=== PATIENT | female | born 1940 | race Caucasian/White ===

== ENCOUNTER 2018-04-04 11:08 | Inpatient (IN) ==
--- NOTE | 2018-04-04 11:56 | ED ---
HPI General Chief complaint: Shortness of Breath/Dyspnea Stated complaint: breathing problems/had ekg/sent by Time Seen by Provider: 04/04/18 11:24 Source: patient Mode of arrival: ambulatory Limitations: no limitations History of Present Illness HPI narrative: 77-year-old female sent in by her primary care physician for evaluation of dyspnea, intermittent chest pain, and abnormal EKG. Patient has history of hypertension. She does follow with cabinet worker Dr. Dominguez and tells me that she has a heart murmur, but denies any other significant cardiac disease. She is on Cardizem, however she is not sure why, and denies history of atrial fibrillation. She tells me that she has felt short of breath for the last 2 months. Her dyspnea is mainly with exertion, and occasionally she experiences substernal chest discomfort. She most recently had this discomfort earlier today. Currently she is chest pain-free. At rest she is also not dyspneic. She does experience orthopnea. She has bilateral lower extremity edema, stating that this has been an issue for several years, and that when she wakes up in the morning the edema seems to be significantly improved, and it worsens throughout the day. She denies cough or hemoptysis. No history of DVT or PE. No recent travel or immobilization. She has history of colon cancer and breast cancer, however states that both have been completely treated years ago. She denies fevers or chills. No cough. No paresthesias or motor deficits. Related Data Home Medications Medication Instructions Recorded Confirmed alendronate 70 mg PO QWEEK 04/04/18 04/04/18 aspirin [Aspir-81] 81 mg PO DAILY 04/04/18 04/04/18 calcium carbonate-vitamin D3 1 tab PO DAILY 04/04/18 04/04/18 [Calcium 600 + D(3)] cilostazol 100 mg PO BID 04/04/18 04/04/18 clonidine HCl 0.1 mg PO TID 04/04/18 04/04/18 diltiazem HCl [DILT-XR] 240 mg PO DAILY 04/04/18 04/04/18 doxazosin 4 mg PO BID 04/04/18 04/04/18 glipizide 2.5 mg PO DAILY 04/04/18 04/04/18 hydrochlorothiazide 12.5 mg PO DAILY 04/04/18 04/04/18 losartan 100 mg PO DAILY 04/04/18 04/04/18 metoprolol succinate 50 mg PO DAILY 04/04/18 04/04/18 [id number]-JJ-lycopen-lutein 1 tab PO DAILY 04/04/18 04/04/18 [Centrum Silver] pravastatin 40 mg PO DAILY 04/04/18 04/04/18 Allergies Allergy/AdvReac Type Severity Reaction Status Date / Time metronidazole [From Flagyl] Allergy Severe Anaphylaxis Verified 04/04/18 11:39 Review of Systems ROS: all other systems reviewed are negative [facility] Medical History Medical History Arthritis (Acute) Breast cancer, left (Acute) Colon cancer (Acute) Diabetes (Acute) Edema of both legs (Acute) Elevated cholesterol (Acute) History of radiation therapy (Acute) Hypertension (Acute) Surgical History Surgical History History of lumpectomy of left breast (Acute) Social History Social History Substance History: No History of Abuse Second Hand Smoke Exposure: No Smoking Status: Never smoker How Often Do You Have a Drink Containing Alcohol: Never Recent Travel in [facility] within the Last 8 Weeks: No Recent Out of Country Travel within the Last 8 Weeks: No Exam Narrative Exam Narrative: GENERAL: Well-developed, well-nourished, overweight, lying comfortably on stretcher, no apparent distress. SKIN: Focused skin assessment warm/dry. HEAD: Atraumatic. Normocephalic. EYES: Pupils equal and round. No scleral icterus. No injection or drainage. ENT: Mucous membranes pink and moist. NECK: Trachea midline. No JVD. CARDIOVASCULAR: Tachycardic, rate 110, regular. Harsh holosystolic murmur. RESPIRATORY: No accessory muscle use. Clear to auscultation. Breath sounds equal bilaterally. GASTROINTESTINAL: Abdomen soft, non-tender, nondistended. MUSCULOSKELETAL: No obvious deformities. No clubbing. No cyanosis. Moderate bilateral lower extremity edema from foot to knee. NEUROLOGICAL: Awake and alert. No obvious cranial nerve deficits. Motor grossly within normal limits. Normal speech. PSYCHIATRIC: Appropriate mood and affect; insight and judgment normal. Course Initial Documented Vital Signs Temperature 97.7 F 04/04/18 11:16 Pulse Rate 116 H 04/04/18 11:16 Respiratory Rate 20 04/04/18 11:16 Blood Pressure 219/89 H 04/04/18 11:16 Pulse Oximetry 98 02/13/19 11:16 Last Documented Vital Signs Temperature 97.7 F 04/04/18 11:16 Pulse Rate 103 H 04/04/18 12:50 Respiratory Rate 20 04/04/18 12:50 Blood Pressure 135/84 04/04/18 12:50 Pulse Oximetry 97 04/04/18 12:50 Critical Care Time Critical Care Time: Yes Total Critical Care Time: 40 Attestation: Aggregate critical care time was 40 minutes. Time to perform other separately billable procedures was not included in the critical care time. My time did not include minutes spent treating any other patients simultaneously or on activities that did not directly contribute to the patient's treatment. The services I provided to this patient were to treat and/or prevent clinically significant deterioration that could result in: , permanent disability, worsening clinical condition, acute respiratory failure I provided critical care services requiring my management, as noted below: Chart data review, documentation time, medication orders and management, vital sign assessments/reviewing monitor data, ordering and reviewing lab tests, ordering and interpreting/reviewing x-rays and diagnostic studies, care of the patient and discussion of the patient with the admitting physicians. Medical Decision Making MDM Narrative Medical decision making narrative: Vital signs reviewed. Initial blood pressure is 218/89 with a heart rate of 116. Chest x-ray: CONCLUSION: Cardiomegaly with mild to moderate interstitial edema Minimal parenchymal changes left base, new from comparison study. CBC is remarkable for hemoglobin 7.9, hematocrit 25. CMP is remarkable for BUN 59, creatinine 2, potassium 5.5 BNP is 362. Troponin is 0.12. CKMB is 197 D-dimer is slightly elevated at 0.77, however the patient's renal function will not support CTA. Patient was given 40 mg of IV Lasix after chest x-ray resulted. 12:40 PM: I discussed the case with the patient's primary care physician Dr. Frazier is at the patient here for evaluation. She tells me that her most recent hemoglobin was from April 2017 and was 11.1. Her most recent creatinine was from February of this year and was 1.87. The patient was made aware of all findings. Her stool is heme-negative and brown. She was verbally consented for blood transfusion by me, however this will be held at this time as the patient has signs of moderate pulmonary edema without signs of active bleeding. 1:40 PM: Case discussed with on-call cabinet worker Dr. Dykes. He reviewed the patient's office records and states that she had a negative nuclear medicine stress test in 2014. Patient's elevated troponin could be secondary to renal insufficiency. He does not recommend anticoagulation at this time. Recommends renal consult, lower extremity venous duplex, echocardiogram, and he will see the patient in consultation. The patient can be admitted to [place]. 2:30 PM: Case discussed with hospitalist Dr. Copeland who will admit the patient to his service. Medical Screen Exam Complete: Yes Emergency Medical Condition: Yes Differential Diagnosis Differential Diagnosis: ACS, PE, pulmonary edema, CHF, pneumonia, pneumothorax, anemia, metabolic abnormality Lab Data Result diagrams: 04/04/18 12:04 04/04/18 12:04 Lab Results 04/04/18 04/04/18 04/04/18 Range/Units 12:04 12:04 12:04 CBC w Diff Auto diff final WBC 7.1 (4.0-11.0) th/mm3 RBC 3.04 L (4.00-5.30) mil/mm3 Hgb 7.9 L (11.6-15.3) gm/dL Hct 25.0 L (35.0-46.0) % MCV 82.3 (80.0-100.0) fL MCH 26.1 L (27.0-34.0) pg MCHC 31.7 L (32.0-36.0) % RDW 15.5 (11.6-17.2) % Plt Count 277 (150-450) th/mm3 MPV 7.2 (7.0-11.0) fL Neut % (Auto) 70.7 H (16.0-70.0) % Lymph % (Auto) 17.5 (9.0-44.0) % [place] % (Auto) 6.9 (0.0-8.0) % Eos % (Auto) 4.3 H (0.0-4.0) % Baso % (Auto) 0.6 (0.0-2.0) % Neut # (Auto) 5.1 (1.8-7.7) th/mm3 Lymph # (Auto) 1.2 (1.0-4.8) th/mm3 [place] # (Auto) 0.5 (0.0-0.9) th/mm3 Eos # (Auto) 0.3 (0.0-0.4) th/mm3 Baso # (Auto) 0.0 (0.0-0.2) th/mm3 WBC Differential . Differential Comment . PT 10.2 (9.8-11.6) sec INR 1.0 Ratio APTT 25.6 (23.4-31.7) sec D-Dimer Quant (PE/DVT) 0.77 H (0.00-0.50) mg/L FEU Sodium 145 (136-145) meq/L Potassium 5.5 H (3.5-5.1) meq/L Chloride 117 H (98-107) meq/L Carbon Dioxide 22.5 (21.0-32.0) meq/L Anion Gap 6 (5-15) meq/L BUN 59 H (7-18) mg/dL Creatinine 2.00 H (0.50-1.00) mg/dL Estimated GFR 24 L (>89) mL/min Random Glucose 62 L (74-106) mg/dL Calcium 8.5 (8.5-10.1) mg/dL Total Bilirubin 0.3 (0.2-1.0) mg/dL AST 15 (15-37) U/L ALT 22 (10-53) U/L Alkaline Phosphatase 72 (45-117) U/L Total Creatine Kinase 197 H (26-192) U/L CK-MB (CK-2) 2.8 (0.5-3.6) ng/mL CK-MB (CK-2) % 1.4 (0.0-4.0) % Troponin I 0.12 H (0.02-0.05) ng/mL B-Natriuretic Peptide (0-100) pg/mL Total Protein 6.7 (6.4-8.2) g/dL Albumin 3.7 (3.4-5.0) g/dL 04/04/18 Range/Units 12:04 CBC w Diff WBC (4.0-11.0) th/mm3 RBC (4.00-5.30) mil/mm3 Hgb (11.6-15.3) gm/dL Hct (35.0-46.0) % MCV (80.0-100.0) fL MCH (27.0-34.0) pg MCHC (32.0-36.0) % RDW (11.6-17.2) % Plt Count (150-450) th/mm3 MPV (7.0-11.0) fL Neut % (Auto) (16.0-70.0) % Lymph % (Auto) (9.0-44.0) % [place] % (Auto) (0.0-8.0) % Eos % (Auto) (0.0-4.0) % Baso % (Auto) (0.0-2.0) % Neut # (Auto) (1.8-7.7) th/mm3 Lymph # (Auto) (1.0-4.8) th/mm3 [place] # (Auto) (0.0-0.9) th/mm3 Eos # (Auto) (0.0-0.4) th/mm3 Baso # (Auto) (0.0-0.2) th/mm3 WBC Differential Differential Comment PT (9.8-11.6) sec INR Ratio APTT (23.4-31.7) sec D-Dimer Quant (PE/DVT) (0.00-0.50) mg/L FEU Sodium (136-145) meq/L Potassium (3.5-5.1) meq/L Chloride (98-107) meq/L Carbon Dioxide (21.0-32.0) meq/L Anion Gap (5-15) meq/L BUN (7-18) mg/dL Creatinine (0.50-1.00) mg/dL Estimated GFR (>89) mL/min Random Glucose (74-106) mg/dL Calcium (8.5-10.1) mg/dL Total Bilirubin (0.2-1.0) mg/dL AST (15-37) U/L ALT (10-53) U/L Alkaline Phosphatase (45-117) U/L Total Creatine Kinase (26-192) U/L CK-MB (CK-2) (0.5-3.6) ng/mL CK-MB (CK-2) % (0.0-4.0) % Troponin I (0.02-0.05) ng/mL B-Natriuretic Peptide 362 H (0-100) pg/mL Total Protein (6.4-8.2) g/dL Albumin (3.4-5.0) g/dL Imaging Data Radiologist's impression: Chest X-Ray 04/04/18 11:39 CONCLUSION: Cardiomegaly with mild to moderate interstitial edema Minimal parenchymal changes left base, new from comparison study. Venous Doppler Study 04/04/18 13:43 CONCLUSION: 1. Negative examination with no evidence of deep venous thrombosis. ECG Data Attestation: I personally reviewed and interpreted this ECG as follows: (Sinus tachycardia, rate 107, borderline right axis deviation, first-degree AV block, slight ST depressions in lateral precordial leads, no prior comparison) Discharge Plan Discharge Disposition Patient Disposition: ED Admit(ED Internal Use Only) Discharge Details Diagnosis: Non-ST elevation [place] (NSTEMI), Pulmonary edema, Renal insufficiency, Anemia Physicians Team ED Provider: Keyon Rubio Primary Care Provider: Marjorie Frazier Rxs /Orders / Referrals /Forms Prescriptions: No Action cilostazol 100 mg Tablet 100 mg PO BID RF: 0 clonidine HCl 0.1 mg Tablet 0.1 mg PO TID RF: 0 diltiazem HCl [DILT-XR] 240 mg Capsule,Ext.Rel 24h Degradable 240 mg PO DAILY RF: 0 pravastatin 40 mg Tablet 40 mg PO DAILY RF: 0 metoprolol succinate 50 mg Tablet Extended Release 24 Hr 50 mg PO DAILY RF: 0 alendronate 70 mg Tablet 70 mg PO QWEEK RF: 0 calcium carbonate-vitamin D3 [Calcium 600 + D(3)] 600 mg(1,500mg) -200 unit Tablet 1 tab PO DAILY RF: 0 aspirin [Aspir-81] 81 mg Tablet,Delayed Release (Dr/Ec) 81 mg PO DAILY RF: 0 glipizide 2.5 mg Tablet Extended Release 24hr 2.5 mg PO DAILY RF: 0 doxazosin 4 mg Tablet 4 mg PO BID RF: 0 losartan 100 mg Tablet 100 mg PO DAILY RF: 0 bqfgbnpk-[id number]-EC-lycopen-lutein [Centrum Silver] 0.4-300-250 mg-mcg-mcg Tablet 1 tab PO DAILY RF: 0 hydrochlorothiazide 12.5 mg PO DAILY RF: 0 Status ED Status: With Doctor
[2018-04-04 12:14] LABS: Baso % (Auto) 0.6 % (0.0-2.0); Eos # (Auto) 0.3 th/mm3 (0.0-0.4); Eos % (Auto) 4.3 % (0.0-4.0); Hemoglobin 7.9 gm/dL (11.6-15.3); Lymph # (Auto) 1.2 th/mm3 (1.0-4.8); Lymph % (Auto) 17.5 % (9.0-44.0); Mean Corpuscular HGB Conc 31.7 % (32.0-36.0); Mean Corpuscular Hemoglobin 26.1 pg (27.0-34.0); Mean Corpuscular Volume 82.3 fL (80.0-100.0); Mean Platelet Volume 7.2 fL (7.0-11.0); Mono # (Auto) 0.5 th/mm3 (0.0-0.9); Mono % (Auto) 6.9 % (0.0-8.0); Neut # (Auto) 5.1 th/mm3 (1.8-7.7); Neut % (Auto) 70.7 % (16.0-70.0); Platelet Count 277 th/mm3 (150-450); Red Blood Count 3.04 mil/mm3 (4.00-5.30); Red Cell Distribution Width 15.5 % (11.6-17.2); White Blood Count 7.1 th/mm3 (4.0-11.0)
[2018-04-04 12:25] LABS: Chloride 117 meq/L (98-107); Potassium 5.5 meq/L (3.5-5.1); Sodium 145 meq/L (136-145)
[2018-04-04 12:28] LABS: Albumin 3.7 g/dL (3.4-5.0); Anion Gap 6 meq/L (5-15); Calcium 8.5 mg/dL (8.5-10.1); Carbon Dioxide 22.5 meq/L (21.0-32.0); Glucose,Random 62 mg/dL (74-106)
[2018-04-04 12:29] LABS: Blood Urea Nitrogen 59 mg/dL (7-18)
--- NOTE | 2018-04-04 12:29 | XR ---
EXAM DATE: 04/04/2018 12:02 PM EST AGE/SEX: 77 years / Female INDICATIONS: Right side chest pain. CLINICAL DATA: This is the patient's initial encounter. Patient reports that signs and symptoms have been present for 2 days and indicates a pain score of 10/10. MEDICAL/SURGICAL HISTORY: Carcinoma, breast. Carcinoma, colon. Hypercholesterolemia. Arthrit is. Diabetes. Edema of both lower extremities. Radiation therapy. Hypertension. . Left breast lumpec hira. COMPARISON: [facility], XR CHEST PA AND LAT, 07/29/2014. . FINDINGS: The heart is enlarged. Mild interstitial edema is present. Granuloma seen laterally in the right lung. Minimal consolidation is seen in the left base. Surgical clips in the left axilla. CONCLUSION: Cardiomegaly with mild to moderate interstitial edema Minimal parenchymal changes left base, new from comparison study. Electronically signed by: Modesto Gupta MD Board Certified Radiologist 04/04/2018 12:27 PM EST
[2018-04-04 12:31] LABS: Alanine Aminotransferase 22 U/L (10-53); Aspartate Aminotransferase 15 U/L (15-37)
[2018-04-04 12:32] LABS: Glomerular Filtration Rate 24 mL/min (>89)
[2018-04-04 12:33] LABS: Activated Partial Thrombo Time 25.6 sec (23.4-31.7); Prothrombin Time 10.2 sec (9.8-11.6); Total Protein 6.7 g/dL (6.4-8.2)
[2018-04-04 12:34] LABS: Alkaline Phosphatase 72 U/L (45-117); Creatine Kinase 197 U/L (26-192)
[2018-04-04 12:36] LABS: Troponin I 0.12 ng/mL (0.02-0.05)
[2018-04-04 12:47] LABS: CKMB Percent 1.4 % (0.0-4.0); Creatine Kinase MB 2.8 ng/mL (0.5-3.6)
[2018-04-04 12:57] LABS: D-Dimer 0.77 mg/L FEU (0.00-0.50)
--- NOTE | 2018-04-04 14:22 | US ---
EXAM DATE: 04/04/2018 2:12 PM EST AGE/SEX: 77 years / Female INDICATIONS: Bilateral leg swelling. CLINICAL DATA: This is the patient's initial encounter. Patient reports that signs and symptoms have been present for > 1 year and indicates a pain score of 0/10. MEDICAL/SURGICAL HISTORY: Hypertension. Shortness of breath. Breast cancer. Colon cancer. Di abetic. High cholesterol. Radiation. . Left breast lumpectomy. COMPARISON: No prior exams available for comparison. TECHNIQUE: Venous ultrasound of both lower extremities was performed from the inguinal ligament to t he proximal calf. Real-time, color Doppler and spectral tracing, compression and augmentation techni ques were used. FINDINGS: Right Leg: Normal compression of the deep venous system from the inguinal region to the proximal long f. No echogenic clot is seen. Normal response of the venous system to augmentation and respiration. Left Leg: Normal compression of the deep venous system from the inguinal region to the proximal calf . No echogenic clot is seen. Normal response of the venous system to augmentation and respiration. Other: None. CONCLUSION: 1. Negative examination with no evidence of deep venous thrombosis. Electronically signed by: Mitul Feliciano MD Board Certified Radiologist 04/04/2018 2:20 PM EST
[2018-04-04] MEDS ORDERED: Acetaminophen 325 MG Tablet PO PRN (14:34)
[2018-04-04] MEDS ORDERED: Morphine Inj 4 MG/ML Vial IV.PUSH PRN ×2 (14:35)
--- NOTE | 2018-04-04 16:49 | P.HPIM ---
History of Present Illness Primary Care Physician: Marjorie Frazier MD Chief Complaint: Shortness of breath and chest pain History of Present Illness: 77-year-old female with known history of hypertension, hyperlipidemia, diabetes, history of breast cancer, history of colon cancer who presented to the hospital today at the request of her college teacher and primary medical doctor for evaluation of shortness of breath, chest pain, abnormal EKG. Patient indicates that over the last 3 months she has been experiencing progressive shortness of breath, chest pain. She states that it started out being approximately 1-2 times a week where she would walk approximately 40 feet she would start developing difficulty in breathing, shortness of breath with development of chest pain in the right upper chest. She states that whenever she sits down the pain will go away in approximately 5 minutes. He denies any radiation of pain to the neck, back, shoulder, arm. Denies any nausea, vomiting, diaphoresis, lightheadedness or dizziness. Patient states that whenever she gets this discomfort she cannot lay down because it makes her breathing worse. The pain has progressively got worse over the last 3 months where she is having a couple times a day. She thought that she would wait until her follow-up appointment with her primary doctor Dr. Frazier which was today. The patient had evaluation done at her prior medical doctor's office and apparently had an abnormal EKG so patient's prior medical doctor called her college teacher Dr. Dominguez who notify them that the patient should go to the emergency department for evaluation. Upon evaluation emergency department patient was found to have multiple abnormalities with uncontrolled hypertension, EKG with sinus tachycardia and first-degree AV block which patient does not have any previous EKGs here for us to review. Patient had elevated troponin. Elevated renal functions. She indicates that she has been evaluated by a award clerk in the past because of her abnormal kidney functions. She was told that she does not need dialysis at this time. Patient found to have normocytic anemia with heme negative stool. Patient denied any hematemesis, hematochezia, melena. Patient did have elevated d-dimer, unable to pursue pulmonary angiogram due to renal functions. Lower extremity ultrasound was performed which did not indicate any DVTs. Will defer further evaluation with possible VQ scan to cardiology. Will need to see if patient will require myocardial perfusion study for further evaluation. Patient did have elevated cardiac enzymes which could be secondary to chronic kidney disease or non-ST elevated myocardial infarction or congestive heart failure. Patient will obviously be admitted to hospital for further evaluation and management. Cardiology has been consulted for further recommendations Review of Systems Review of Systems: all other systems reviewed are negative Cardiovascular: Reports chest pain, Reports chest pain with activity, Reports dyspnea, Reports dyspnea on exertion and Reports orthopnea [facility] Medical History Medical History Arthritis (Acute) Breast cancer, left (Acute) Colon cancer (Acute) Diabetes (Acute) Edema of both legs (Acute) Elevated cholesterol (Acute) History of radiation therapy (Acute) Hypertension (Acute) Surgical History Surgical History History of cataract surgery (Acute) History of knee surgery (Acute) History of lumpectomy of left breast (Acute) Family History Family History Father Family history of diabetes mellitus Mother Family history of cancer Social History Social History Substance History: No History of Abuse Second Hand Smoke Exposure: Yes (at [employer]) Smoking Status: Never smoker How Often Do You Have a Drink Containing Alcohol: Never Recent Travel in [facility] within the Last 8 Weeks: No Recent Out of Country Travel within the Last 8 Weeks: No Immunization History Tetanus Immunization: <5 Years Medications and Allergies Allergies Allergy/AdvReac Type Severity Reaction Status Date / Time metronidazole [From Flagyl] Allergy Severe Anaphylaxis Verified 04/04/18 11:39 Home Medications Medication Instructions Recorded Confirmed Type alendronate 70 mg PO QWEEK 04/04/18 04/04/18 History aspirin [Aspir-81] 81 mg PO DAILY 04/04/18 04/04/18 History calcium carbonate-vitamin D3 1 tab PO DAILY 04/04/18 04/04/18 History [Calcium 600 + D(3)] cilostazol 100 mg PO BID 04/04/18 04/04/18 History clonidine HCl 0.1 mg PO TID 04/04/18 04/04/18 History diltiazem HCl [DILT-XR] 240 mg PO DAILY 04/04/18 04/04/18 History doxazosin 4 mg PO BID 04/04/18 04/04/18 History glipizide 2.5 mg PO DAILY 04/04/18 04/04/18 History hydrochlorothiazide 12.5 mg PO DAILY 04/04/18 04/04/18 History losartan 100 mg PO DAILY 04/04/18 04/04/18 History metoprolol succinate 50 mg PO DAILY 04/04/18 04/04/18 History jpzbsdcm-bvm-IV-lycopen-lutein 1 tab PO DAILY 04/04/18 04/04/18 History [Centrum Silver] pravastatin 40 mg PO DAILY 04/04/18 04/04/18 History Active Medications: Active Medications Acetaminophen (Tylenol) 650 mg PO Q4H PRN PRN Reason: Temp > 100.4 Al Hydroxide/Mg Hydroxide (Milk Of Magngia Liq) 30 ml PO Q12H PRN PRN Reason: Mild Constipation Morphine Sulfate (Morphine Inj) 2 mg IV.PUSH Q4H PRN PRN Reason: Pain 3 to 6 Morphine Sulfate (Morphine Inj) 4 mg IV.PUSH Q4H PRN PRN Reason: Pain 7 to 10 Ondansetron HCl (Zofran Inj) 4 mg IV.PUSH Q6H PRN PRN Reason: NAUSEA OR VOMITING Sodium Chloride (Ns Flush) 2 ml IV.FLUSH UNSCH PRN PRN Reason: FLUSH AFTER USING IV ACCESS Last Admin: 04/04/18 12:44 Dose: 2 ml Sodium Chloride (Ns Flush) 2 ml IV.FLUSH BID JOSE MIGUEL Sodium Chloride (Ns Flush) 2 ml IV.FLUSH PRN PRN PRN Reason: FLUSH AFTER USING IV ACCESS Physical Exam Vital signs: Vital Signs 04/04/18 11:16 04/04/18 11:50 04/04/18 12:06 Temperature 97.7 F Pulse Rate 116 H 104 H 105 H Respiratory Rate 20 20 Blood Pressure 219/89 H 197/103 H Pulse Oximetry 98 98 98 04/04/18 12:50 04/04/18 13:20 04/04/18 14:42 Temperature Pulse Rate 103 H 99 H 95 H Respiratory Rate 20 18 Blood Pressure 135/84 198/78 H Pulse Oximetry 97 97 04/04/18 15:25 Temperature Pulse Rate 94 H Respiratory Rate 18 Blood Pressure 195/85 H Pulse Oximetry 97 Intake & Output 04/03/18 04/04/18 04/04/18 18:59 06:59 18:59 Weight 97 kg Narrative: GENERAL: Well-developed, well-nourished, in no acute distress. alert and orientated HEENT: Head is normocephalic without any lesions or masses noted. Facial features are symmetric. Eyes: Pupils equal round reactive to light. Extraocular muscles are intact. Conjunctivae were clear. Oropharyngeal: Pharynx without any erythema edema. Tongue is midline without deviation. Buccal mucosa is moist without any masses or lesions NECK: Supple without any masses. Trachea midline no deviation. No JVD, no bruits are appreciated CARDIAC: Regular rhythm, regular rate. S1/S2 are heard. Patient does have a rather impressive cardiac murmur with a thrilling early holosystolic murmur, this was heard in all areas but more accentuated in the aortic region. No gallops or rubs. LUNGS: Clear to auscultation bilaterally. No wheeze, rhonchi or rales. No use of accessory muscles on inspiration or expiration. ABDOMEN: Soft, nontender. Nondistended. Bowel sounds heard in all 4 quadrants. No organomegaly or masses. Negative rebound, negative guarding EXTREMITIES: 2+ bilateral lower extremity edema, pulses are equal bilaterally. No cyanosis or clubbing NEUROLOGY: Mood and affect appear appropriate. Cranial nerves II through XII grossly intact. Muscle strength 5/5 in upper and lower extremities bilaterally. Deep tendon reflexes are 2+ in upper and lower extremities bilaterally. Results Labs CBC & Chem 7: 04/04/18 12:04 04/04/18 12:04 Imaging Impressions Chest X-Ray 04/04/18 11:39 CONCLUSION: Cardiomegaly with mild to moderate interstitial edema Minimal parenchymal changes left base, new from comparison study. Venous Doppler Study 04/04/18 13:43 CONCLUSION: 1. Negative examination with no evidence of deep venous thrombosis. Caprini VTE Risk Assessment Caprini VTE Risk Assessment: Moderate/High Risk (score >= 2) Caprini Risk Assessment Model: Point Value = 1 Point Value = 2 Point Value = 3 Point Value = 5 Age 41-60 Minor surgery BMI > 25 kg/m2 Swollen legs Varicose veins or History of unexplained or recurrent spontaneous Oral contraceptives or hormone replacement Sepsis (< 1 month) Serious lung disease, including pneumonia (< 1 month) Abnormal pulmonary function Acute myocardial infarction Congestive heart failure (< 1 month) History of inflammatory bowel disease Medical patient at bed rest Age 61-74 Arthroscopic surgery Major open surgery (> 45 min) Laparoscopic surgery (> 45 min) Malignancy Confined to bed (> 72 hours) Immobilizing plaster cast Central venous access Age >= 75 History of VTE Family history of VTE Factor V Leiden Prothrombin [id number] Lupus anticoagulant Anticardiolipin antibodies Elevated serum homocysteine Heparin-induced thrombocytopenia Other congenital or acquired thrombophilia Stroke (< 1 month) Elective arthroplasty Hip, pelvis, or leg fracture Acute spinal cord injury (< 1 month) Prophylaxis Regimen: Total Risk Factor Score Risk Level Prophylaxis Regimen 0-1 Low Early ambulation 2 Moderate Order ONE of the following: *Sequential Compression Device (SCD) *Heparin 5000 units SQ BID 3-4 Higher Order ONE of the following medications: *Heparin 5000 units SQ TID *Enoxaparin/Lovenox 40 mg SQ daily (WT < 150 kg, CrCl > 30 mL/min) *Enoxaparin/Lovenox 30 mg SQ daily (WT < 150 kg, CrCl > 10-29 mL/min) *Enoxaparin/Lovenox 30 mg SQ BID (WT < 150 kg, CrCl > 30 mL/min) AND/OR *Sequential Compression Device (SCD) 5 or more Highest Order ONE of the following medications: *Heparin 5000 units SQ TID (Preferred with Epidurals) *Enoxaparin/Lovenox 40 mg SQ daily (WT < 150 kg, CrCl > 30 mL/min) *Enoxaparin/Lovenox 30 mg SQ daily (WT < 150 kg, CrCl > 10-29 mL/min) *Enoxaparin/Lovenox 30 mg SQ BID (WT < 150 kg, CrCl > 30 mL/min) AND *Sequential Compression Device (SCD) Assessment and Plan Plan Chest pain Could be secondary to non-ST elevated myocardial infarction, stable angina, congestive heart failure Patient does have initially elevated cardiac enzyme, will continue to trend cardiac enzymes to evaluate for worsening Initial EKG was reviewed which was reviewed by myself and indicated sinus tachycardia first-degree AV block, continue monitor serial EKGs Community Fundraiser consulted for further recommendations, college teacher was contacted via emergency room physician who recommended admission and no anticoagulation Patient does have history of chronic kidney disease with elevated creatinine. This is going to complicate patient's need for possible intervention, patient is in fluid overload at this time so will be difficult to give fluids in order to try to improve patient's renal function if patient needs to have intervention Continue aspirin, nitroglycerin as needed, continue beta-aislinn, ARB, pravastatin Obtain lipid panel Acute congestive heart failure unknown whether it is systolic versus diastolic We will need to obtain echocardiogram Cautious diuresis secondary to patient's acute renal failure with hyperkalemia Patient did have a chest x-ray which does show cardiomegaly with mild to moderate interstitial edema Patient had elevated BNP at 362 Continue beta-aislinn, ARB Fluid restriction, daily weights Normocytic anemia, unknown etiology Could be anemia from chronic disease, stool was heme-negative in the emergency department We will need to check anemia studies May need to transfuse to keep hemoglobin above 10.0 given the patient with cardiovascular disease Chronic kidney disease with hyperkalemia Unknown what stage at this time We will consult Dr. So, patient indicates that is her award clerk Continue monitor renal function Avoid nephrotoxins Diabetes Diabetic diet Accu-Cheks with sliding scale insulin DVT prevention Sequential compression devices Discussed Condition With: Patient, college teacher, nursing staff, Dr. Copeland H&P: Quality VTE Deep Vein Thrombosis/Pulmonary Embolism Present on Admission: No
--- NOTE | 2018-04-04 17:29 | MB ---
cc: Radha Jones MD DATE: 04/04/2018 REASON FOR CONSULTATION: Elevated troponin and abnormal EKG. HISTORY OF PRESENT ILLNESS: Ms. Ayala is a pleasant 77-year-old female who does have a history of hypertension, hyperlipidemia, and diabetes. She was followed by my partner, Dr. Dominguez in the past, but has not been seen in the office for over 4 years. The patient has had progressive shortness of breath and lower extremity edema over the last 2-3 months. She was seen by her primary care provider today and referred to the emergency room. The patient also notes that she has had some right-sided chest pain. She is somewhat of a poor historian. PAST MEDICAL HISTORY: Significant for hypertension, hyperlipidemia, diabetes, breast cancer, colon cancer, anemia, chronic kidney disease. PAST SURGICAL HISTORY: Does include the lumpectomy of her breast. OUTPATIENT MEDICATIONS: Include: 1. Aspirin. 2. Cilostazol. 3. Clonidine. 4. Diltiazem. 5. Doxazosin. 6. Glipizide. 7. Hydrochlorothiazide. 8. Losartan. 9. Metoprolol. 10. Pravastatin. SOCIAL HISTORY: The patient does not smoke. REVIEW OF SYSTEMS: Except was mentioned in the HPI, all 12 systems are negative. FAMILY HISTORY: Noncontributory. PHYSICAL EXAMINATION: VITAL SIGNS: 94, 18, 195/85. GENERAL: She is a morbidly obese female who is in no apparent distress. NECK: Free from JVD. LUNGS: Clear to auscultation. CARDIOVASCULAR: She has a harsh aortic stenosis murmur. She is a bit tachycardic. ABDOMEN: Soft. EXTREMITIES: Trace amount of edema. DIAGNOSTIC DATA: Chest x-ray from 04/04/2018 shows cardiomegaly with mild to moderate interstitial edema. LABORATORY DATA: Significant for hemoglobin of 7.9. Her D-dimer was 0.77, potassium 5.5, creatinine 2.0, and troponin I of 0.12 with a BNP of 362. EKG shows sinus tachycardia and nonspecific ST-T wave changes. IMPRESSION: 1. Congestive heart failure - The patient likely has an acute on chronic exacerbation of diastolic heart failure. We will obviously need echocardiogram to verify this, as well as her valvular heart disease. I do agree with the diuretics. I would use some caution in both diuresing her and decreasing her blood pressure secondary to her potentially severe aortic stenosis. 2. Elevated troponin - this is likely a secondary myocardial infarction from her uncontrolled hypertension and congestive heart failure. 3. Valvular heart disease - her exam is consistent with aortic stenosis. She unfortunately does not appear to be a good candidate with her renal insufficiency and anemia. Nonetheless, she will be worked up further with an echocardiogram. 4. Uncontrolled hypertension - at this point, I would restart her home medications as there may have been some noncompliance. Radha Jones MD BAB/ct , 04:42 PM , 04:52 PM
[2018-04-04 18:16] LABS: Erythrocyte Sedimentation Rate 35 mm/hr (0-30)
[2018-04-04 18:19] LABS: Troponin I 0.37 ng/mL (0.02-0.05)
[2018-04-04 18:30] LABS: CKMB Percent 2.1 % (0.0-4.0); Creatine Kinase MB 4.7 ng/mL (0.5-3.6)
--- NOTE | 2018-04-04 19:46 | ECG ---
Date Performed: 04/04/2018 Time Performed: 11:46:22 PTAGE: 77 years EKG: SINUS TACHYCARDIA WITH FIRST DEGREE AV BLOCK BORDERLINE RIGHT AXIS DEVIATION NONSPECIFIC ST & T-WAVE ABNORMALITY ABNORMAL ECG NO PREVIOUS TRACING DOCTOR: Jose Smith Interpretating Date/Time 04/04/2018 19:44:20
[2018-04-04 20:49] LABS: Reticulocyte Percent 1.1 % (0.4-3.0)
[2018-04-04] MEDS: Doxazosin 4 MG Tablet PO SCH (20:50)
[2018-04-04] MEDS: Cilostazol 50 MG Tablet PO SCH (20:50)
[2018-04-04 21:08] LABS: Iron 26 mcg/dL (50-170); Lactate Dehydrogenase 219 U/L (84-246)
[2018-04-04 21:32] LABS: % Iron Saturation 6.9 % (20-50); Ferritin 10 ng/mL (8-252); Haptoglobin 159 mg/dL (30-200); Total Iron Binding Capacity 378 mcg/dL (250-450); Vitamin B12 950 pg/mL (193-986)
[2018-04-05 01:11] LABS: Chloride 112 meq/L (98-107); Potassium 5.4 meq/L (3.5-5.1); Sodium 141 meq/L (136-145)
[2018-04-05 01:14] LABS: Calcium 8.2 mg/dL (8.5-10.1)
[2018-04-05 01:15] LABS: Albumin 3.4 g/dL (3.4-5.0); Anion Gap 6 meq/L (5-15); Blood Urea Nitrogen 59 mg/dL (7-18); Carbon Dioxide 22.6 meq/L (21.0-32.0); Glucose,Random 74 mg/dL (74-106)
[2018-04-05 01:18] LABS: Alanine Aminotransferase 20 U/L (10-53); Aspartate Aminotransferase 21 U/L (15-37); Glomerular Filtration Rate 23 mL/min (>89)
[2018-04-05 01:20] LABS: Creatine Kinase 221 U/L (26-192)
[2018-04-05 01:21] LABS: Alkaline Phosphatase 65 U/L (45-117)
[2018-04-05 01:23] LABS: Troponin I 0.51 ng/mL (0.02-0.05)
[2018-04-05 01:32] LABS: CKMB Percent 1.7 % (0.0-4.0); Creatine Kinase MB 3.7 ng/mL (0.5-3.6)
[2018-04-05 06:52] LABS: Baso % (Auto) 0.5 % (0.0-2.0); Eos # (Auto) 0.6 th/mm3 (0.0-0.4); Eos % (Auto) 7.9 % (0.0-4.0); Hematocrit 26.5 % (35.0-46.0); Hemoglobin 8.2 gm/dL (11.6-15.3); Lymph # (Auto) 1.8 th/mm3 (1.0-4.8); Lymph % (Auto) 24.4 % (9.0-44.0); Mean Corpuscular Hemoglobin 25.8 pg (27.0-34.0); Mean Corpuscular Volume 83.6 fL (80.0-100.0); Mean Platelet Volume 7.9 fL (7.0-11.0); Mono # (Auto) 0.6 th/mm3 (0.0-0.9); Mono % (Auto) 7.9 % (0.0-8.0); Neut # (Auto) 4.2 th/mm3 (1.8-7.7); Neut % (Auto) 59.3 % (16.0-70.0); Platelet Count 287 th/mm3 (150-450); Red Blood Count 3.17 mil/mm3 (4.00-5.30); Red Cell Distribution Width 15.9 % (11.6-17.2); White Blood Count 7.3 th/mm3 (4.0-11.0)
[2018-04-05 06:55] LABS: Mean Corpuscular HGB Conc 30.9 % (32.0-36.0)
[2018-04-05 07:21] LABS: Troponin I 0.45 ng/mL (0.02-0.05)
[2018-04-05] MEDS: dilTIAZem CD 240 MG Capsule PO SCH (10:10)
[2018-04-05] MEDS: Doxazosin 4 MG Tablet PO SCH ×2 (10:10→20:03)
[2018-04-05] MEDS: Cilostazol 50 MG Tablet PO SCH ×2 (10:11→20:01)
[2018-04-05 10:14] LABS: Chol/HDL Ratio 2.2 Ratio; HDL Cholesterol 58.5 mg/dL (40.0-60.0)
--- NOTE | 2018-04-05 10:28 | ECHRPT ---
Indication: CARDIOMYOPATHY CONCLUSIONS Normal left ventricular size. Wall thickness is measured at the upper limits of normal. The left ventricular systolic function is normal with an estimated ejection fraction in the range of 60-65%. Increased atrial septal thickness. Trace mitral valve regurgitation. Mild aortic valve stenosis. There is trace tricuspid valve regurgitation. The estimated pulmonary arterial pressure is 51 mmHg. There is a small pericardial effusion present. BP: / HR: Rhythm: Sinus MEASUREMENTS (Male / Female) Normal Values Technical Quality:Poor 2D ECHO LV Diastolic Diameter PLAX 4.2 cm 4.2 - 5.9 / 3.9 - 5.3 cm LV Systolic Diameter PLAX 3.0 cm IVS Diastolic Thickness 1.2 cm 0.6 - 1.0 / 0.6 - 0.9 cm LVPW Diastolic Thickness 1.2 cm 0.6 - 1.0 / 0.6 - 0.9 cm LV Relative Wall Thickness 0.6 RV Internal Dim ED PLAX 3.0 cm LVOT Diameter 1.7 cm DOPPLER AV Peak Velocity 295.5 cm/s AV Peak Gradient 34.9 mmHg AV Mean Gradient 20.0 mmHg AV Velocity Time Integral 62.0 cm LVOT Peak Velocity 128.0 cm/s LVOT Peak Gradient 6.6 mmHg LVOT Velocity Time Integral 28.1 cm AV Area Cont Eq vti 1.0 cm AV Area Cont Eq pk 1.0 cm Mitral E Point Velocity 147.0 cm/s Mitral A Point Velocity 138.0 cm/s Mitral E to A Ratio 1.1 LV E' Lateral Velocity 13.6 cm/s Mitral E to LV E' Lateral Ratio 10.8 LV E' Septal Velocity 6.7 cm/s Mitral E to LV E' Septal Ratio 21.8 TR Peak Velocity 320.0 cm/s TR Peak Gradient 41.0 mmHg Right Atrial Pressure 10.0 mmHg Pulmonary Artery Systolic Pressu 51.0 mmHg Right Ventricular Systolic Press 51.0 mmHg PV Peak Velocity 177.0 cm/s PV Peak Gradient 12.5 mmHg FINDINGS LEFT VENTRICLE Normal left ventricular size. Wall thickness is measured at the upper limits of normal. The left ventricular systolic function is normal with an estimated ejection fraction in the range of 60-65%. LEFT ATRIUM The left atrial size is normal. RIGHT ATRIUM The right atrial size is normal. ATRIAL SEPTUM Increased atrial septal thickness. AORTA The aortic root and proximal ascending aorta are normal in size on limited imaging. MITRAL VALVE Trace mitral valve regurgitation. AORTIC VALVE Mild aortic valve stenosis. TRICUSPID VALVE There is trace tricuspid valve regurgitation. The estimated pulmonary arterial pressure is 51 mmHg. PULMONARY VALVE No pulmonary valve regurgitation or stenosis. VESSELS The inferior vena cava is normal in size. PERICARDIUM There is a small pericardial effusion present. Bright Russo MD, FACC (Electronically Signed) Final Date:05 April 2018 10:27
--- NOTE | 2018-04-05 11:45 | ECG ---
Date Performed: 04/04/2018 Time Performed: 17:32:04 PTAGE: 77 years EKG: SINUS TACHYCARDIA WITH FREQUENT PACs FIRST DEGREE AV BLOCK NONSPECIFIC ST-T WAVE ABNORMALIT IES ABNORMAL ECG Compared to PREVIOUS TRACING , PACs are new. PREVIOUS TRACIN04/04/2018 11.46 DOCTOR: Anselmo Dykes Interpretating Date/Time 04/05/2018 11:43:38
--- NOTE | 2018-04-05 11:45 | ECG ---
Date Performed: 04/05/2018 Time Performed: 00:12:32 PTAGE: 77 years EKG: SINUS TACHYCARDIA WITH OCCASIONAL SUPRAVENTRICULAR PREMATURE COMPLEXES BORDERLINE RIGHT AXI S DEVIATION NONSPECIFIC ST & T-WAVE ABNORMALITY ABNORMAL RHYTHM ECG Compared to PREVIOUS TRACING , the VA interval is shorter. PREVIOUS TRACIN04/04/2018 17.32 DOCTOR: Anselmo Dykes Interpretating Date/Time 04/05/2018 11:44:00
--- NOTE | 2018-04-05 11:52 | P.PNIM ---
Subjective Interval history: 77-year-old female who is seen examined today for follow-up on non-ST elevated myocardial infarction, acute congestive heart failure, acute kidney injury, anemia. Patient states that she does feel better today after the diuresis. She is able to lay flat last night. However she still gets significantly short of breath on exertion. Patient denies any chest pain. Vital signs are stable. Patient remains afebrile. Physical Exam Vital signs: Vital Signs 04/04/18 11:50 04/04/18 12:06 04/04/18 12:50 Temperature Pulse Rate 104 H 105 H 103 H Respiratory Rate 20 20 Blood Pressure 197/103 H 135/84 Pulse Oximetry 98 98 97 04/04/18 13:20 04/04/18 14:42 04/04/18 15:25 Temperature Pulse Rate 99 H 95 H 94 H Respiratory Rate 18 18 Blood Pressure 198/78 H 195/85 H Pulse Oximetry 97 97 04/04/18 16:10 04/04/18 20:00 04/04/18 20:20 Temperature 97.3 F L 99.3 F Pulse Rate 94 H 100 H Respiratory Rate 20 16 Blood Pressure 140/82 126/75 Pulse Oximetry 95 96 97 04/05/18 00:00 04/05/18 00:05 04/05/18 08:00 Temperature 97.9 F 97.1 F L Pulse Rate 95 H 100 H 101 H Respiratory Rate 20 20 Blood Pressure 143/73 H 134/75 Pulse Oximetry 95 95 Intake & Output 04/04/18 04/05/18 04/05/18 18:59 06:59 18:59 Intake Total 300 / 300 Balance 300 / 300 Weight 97 kg 97 kg Intake: Oral 300 / 300 Other: # Voids 5 4 # Bowel Movements 0 Narrative: GENERAL: Well-developed, well-nourished, in no acute distress. alert and orientated HEENT: Head is normocephalic without any lesions or masses noted. Facial features are symmetric. Eyes: Extraocular muscles are intact. Conjunctivae were clear. NECK: Supple without any masses. Trachea midline no deviation. No JVD, CARDIAC: Regular rhythm, regular rate. S1/S2 are heard. Patient does have a rather impressive cardiac murmur with a thrilling early holosystolic murmur, this was heard in all areas but more accentuated in the aortic region. No gallops or rubs. LUNGS: Clear to auscultation bilaterally. No wheeze, rhonchi or rales. No use of accessory muscles on inspiration or expiration. ABDOMEN: Soft, nontender. Nondistended. Bowel sounds heard in all 4 quadrants. No organomegaly or masses. Negative rebound, negative guarding EXTREMITIES: 2+ bilateral lower extremity edema, pulses are equal bilaterally. No cyanosis or clubbing NEUROLOGY: Mood and affect appear appropriate. Cranial nerves II through XII grossly intact. Moving all extremities, speech is clear Results Labs CBC & Chem 7: 04/05/18 05:13 04/05/18 01:00 Imaging Imaging: Impressions Chest X-Ray 04/04/18 11:39 CONCLUSION: Cardiomegaly with mild to moderate interstitial edema Minimal parenchymal changes left base, new from comparison study. Venous Doppler Study 04/04/18 13:43 CONCLUSION: 1. Negative examination with no evidence of deep venous thrombosis. Assessment and Plan Plan Chest pain, non-ST elevated myocardial infarction Serial cardiac enzymes were performed and indicated worsening and now plateaued at 0.45 Serial EKGs reviewed by myself which indicated sinus tachycardia with occasional supra ventricular premature complexes. First-degree AV block. No acute changes Cardiology evaluated patient and recommendation Patient does have history of chronic kidney disease with elevated creatinine. This is going to complicate patient's need for possible intervention, patient is in fluid overload at this time so will be difficult to give fluids in order to try to improve patient's renal function if patient needs to have intervention Continue aspirin, nitroglycerin as needed, continue beta-aislinn, ARB, pravastatin Lipid panel was done and LDL was 48 Acute congestive heart failure unknown whether it is systolic versus diastolic Echocardiogram was performed and indicated ejection fraction 60-65%. Mild aortic valve stenosis, small pericardial effusion, PA peak pressure 51 mmhg Cautious diuresis secondary to patient's acute renal failure with hyperkalemia Patient did have a chest x-ray which does show cardiomegaly with mild to moderate interstitial edema Patient did have elevated BNP Continue beta-aislinn, ARB Fluid restriction, daily weights Discussed with cardiology who indicated reducing to p.o. Lasix for diuresis, and once patient fluid status is improved, nephrology following the patient and clinically stable; patient can discharge home with medical management. Normocytic anemia, unknown etiology Could be anemia from chronic disease, stool was heme-negative in the emergency department Anemia studies indicating iron deficient anemia May need to transfuse to keep hemoglobin above 10.0 given the patient with cardiovascular disease Chronic kidney disease with hyperkalemia Unknown what stage at this time Consulted Dr. 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 Copeland Progress Note: Quality VTE Deep Vein Thrombosis/Pulmonary Embolism Present on Admission: No
--- NOTE | 2018-04-05 12:31 | P.PNCA ---
Subjective Interval history: PT feeling better Medications and Allergies Active Medications: Active Medications Acetaminophen (Tylenol) 650 mg PO Q4H PRN PRN Reason: Temp > 100.4 Al Hydroxide/Mg Hydroxide (Milk Of Magngia Liq) 30 ml PO Q12H PRN PRN Reason: Mild Constipation Cilostazol (Pletal) 100 mg PO BID [facility] Last Admin: 04/05/18 10:11 Dose: 100 mg Clonidine HCl (Catapres) 0.1 mg PO TID [facility] Last Admin: 04/05/18 10:10 Dose: 0.1 mg Diltiazem HCl (Cardizem Cd 24hr) 240 mg PO DAILY [facility] Last Admin: 04/05/18 10:10 Dose: 240 mg Doxazosin Mesylate (Cardura) 4 mg PO BID [facility] Last Admin: 04/05/18 10:10 Dose: 4 mg Furosemide (Lasix Inj) 20 mg IV.PUSH BID@0900,1800 [facility] Losartan Potassium (Cozaar) 100 mg PO DAILY [facility] Last Admin: 04/05/18 10:10 Dose: 100 mg Metoprolol Succinate (Toprol Xl) 50 mg PO DAILY [facility] Last Admin: 04/05/18 10:11 Dose: 50 mg Morphine Sulfate (Morphine Inj) 2 mg IV.PUSH Q4H PRN PRN Reason: Pain 3 to 6 Morphine Sulfate (Morphine Inj) 4 mg IV.PUSH Q4H PRN PRN Reason: Pain 7 to 10 Ondansetron HCl (Zofran Inj) 4 mg IV.PUSH Q6H PRN PRN Reason: NAUSEA OR VOMITING Pravastatin Sodium (Pravachol) 40 mg PO DAILY [facility] Last Admin: 04/05/18 10:11 Dose: 40 mg Sodium Chloride (Ns Flush) 2 ml IV.FLUSH UNSCH PRN PRN Reason: FLUSH AFTER USING IV ACCESS Last Admin: 04/04/18 12:44 Dose: 2 ml Sodium Chloride (Ns Flush) 2 ml IV.FLUSH BID [facility] Last Admin: 04/05/18 10:11 Dose: 2 ml Sodium Chloride (Ns Flush) 2 ml IV.FLUSH PRN PRN PRN Reason: FLUSH AFTER USING IV ACCESS Allergies Allergy/AdvReac Type Severity Reaction Status Date / Time metronidazole [From Flagyl] Allergy Severe Anaphylaxis Verified 04/04/18 11:39 Home Medications Medication Instructions Recorded Confirmed Type alendronate 70 mg PO QWEEK 04/04/18 04/04/18 History aspirin [Aspir-81] 81 mg PO DAILY 04/04/18 04/04/18 History calcium carbonate-vitamin D3 1 tab PO DAILY 04/04/18 04/04/18 History [Calcium 600 + D(3)] cilostazol 100 mg PO BID 04/04/18 04/04/18 History clonidine HCl 0.1 mg PO TID 04/04/18 04/04/18 History diltiazem HCl [DILT-XR] 240 mg PO DAILY 04/04/18 04/04/18 History doxazosin 4 mg PO BID 04/04/18 04/04/18 History glipizide 2.5 mg PO DAILY 04/04/18 04/04/18 History hydrochlorothiazide 12.5 mg PO DAILY 04/04/18 04/04/18 History losartan 100 mg PO DAILY 04/04/18 04/04/18 History metoprolol succinate 50 mg PO DAILY 04/04/18 04/04/18 History rqhcheyx-qjh-JO-lycopen-lutein 1 tab PO DAILY 04/04/18 04/04/18 History [Centrum Silver] pravastatin 40 mg PO DAILY 04/04/18 04/04/18 History Physical Exam Vital signs: Vital Signs 04/04/18 12:50 04/04/18 13:20 04/04/18 14:42 Temperature Pulse Rate 103 H 99 H 95 H Respiratory Rate 20 18 Blood Pressure 135/84 198/78 H Pulse Oximetry 97 97 04/04/18 15:25 04/04/18 16:10 04/04/18 20:00 Temperature 97.3 F L 99.3 F Pulse Rate 94 H 94 H 100 H Respiratory Rate 18 20 16 Blood Pressure 195/85 H 140/82 126/75 Pulse Oximetry 97 95 96 04/04/18 20:20 04/05/18 00:00 04/05/18 00:05 Temperature 97.9 F Pulse Rate 95 H 100 H Respiratory Rate 20 Blood Pressure 143/73 H Pulse Oximetry 97 95 04/05/18 08:00 Temperature 97.1 F L Pulse Rate 101 H Respiratory Rate 20 Blood Pressure 134/75 Pulse Oximetry 95 Intake & Output 04/04/18 04/05/18 04/05/18 18:59 06:59 18:59 Intake Total 300 / 300 Balance 300 / 300 Weight 97 kg 97 kg Intake: Oral 300 / 300 Other: # Voids 5 4 # Bowel Movements 0 - Constitutional no acute distress - Routine Respiratory Exam Present: CTA bilaterally - Routine Cardiovascular Exam Comments: RRR, harsh [place] - Routine Extremities Exam Comments: no edema Results 04/05/18 05:13 04/05/18 01:00 Cardiac Enzymes 04/04/18 04/04/18 04/04/18 Range/Units 12:04 12:04 12:04 AST 15 (15-37) U/L Lactate Dehydrogenase 219 (84-246) U/L CK-MB (CK-2) 2.8 (0.5-3.6) ng/mL Troponin I 0.12 H (0.02-0.05) ng/mL B-Natriuretic Peptide 362 H (0-100) pg/mL 04/04/18 04/05/18 04/05/18 Range/Units 17:40 01:00 05:13 AST 21 (15-37) U/L Lactate Dehydrogenase (84-246) U/L CK-MB (CK-2) 4.7 H 3.7 H (0.5-3.6) ng/mL Troponin I 0.37 H D 0.51 H D 0.45 H (0.02-0.05) ng/mL B-Natriuretic Peptide (0-100) pg/mL Coagulation 04/04/18 04/04/18 Range/Units 12:04 12:04 PT 10.2 (9.8-11.6) sec APTT 25.6 (23.4-31.7) sec B-Natriuretic Peptide 362 H (0-100) pg/mL Lipids 04/05/18 Range/Units 05:13 Triglycerides 115 (42-150) mg/dL Cholesterol 129 (120-200) mg/dL HDL Cholesterol 58.5 (40.0-60.0) mg/dL Cholesterol/HDL Ratio 2.20 Ratio CBC 04/04/18 04/05/18 Range/Units 12:04 05:13 WBC 7.1 7.3 (4.0-11.0) th/mm3 RBC 3.04 L 3.17 L (4.00-5.30) mil/mm3 Hgb 7.9 L 8.2 L (11.6-15.3) gm/dL Hct 25.0 L 26.5 L (35.0-46.0) % Plt Count 277 287 (150-450) th/mm3 Neut # (Auto) 5.1 4.2 (1.8-7.7) th/mm3 Lymph # (Auto) 1.2 1.8 (1.0-4.8) th/mm3 Cocke # (Auto) 0.5 0.6 (0.0-0.9) th/mm3 Eos # (Auto) 0.3 0.6 H (0.0-0.4) th/mm3 Baso # (Auto) 0.0 0.0 (0.0-0.2) th/mm3 Comprehensive Metabolic Panel 04/04/18 04/05/18 Range/Units 12:04 01:00 Sodium 145 141 (136-145) meq/L Potassium 5.5 H 5.4 H (3.5-5.1) meq/L Chloride 117 H 112 H (98-107) meq/L Carbon Dioxide 22.5 22.6 (21.0-32.0) meq/L BUN 59 H 59 H (7-18) mg/dL Creatinine 2.00 H 2.10 H (0.50-1.00) mg/dL Calcium 8.5 8.2 L (8.5-10.1) mg/dL AST 15 21 (15-37) U/L ALT 22 20 (10-53) U/L Alkaline Phosphatase 72 65 (45-117) U/L Total Protein 6.7 6.0 L D (6.4-8.2) g/dL Albumin 3.7 3.4 (3.4-5.0) g/dL Intake and Output 04/04/18 04/05/18 04/05/18 22:59 06:59 14:59 Intake Total 240 / 240 60 / 60 Balance 240 / 240 60 / 60 Intake: Oral 240 / 240 60 / 60 Other: # Voids 4 # Bowel Movements 0 Weight 97 kg - Imaging and Cardiology Imaging: Impressions Chest X-Ray 04/04/18 11:39 CONCLUSION: Cardiomegaly with mild to moderate interstitial edema Minimal parenchymal changes left base, new from comparison study. Venous Doppler Study 04/04/18 13:43 CONCLUSION: 1. Negative examination with no evidence of deep venous thrombosis. Echo: report reviewed (mild with normal EF) Assessment and Plan - Plan Diastolic CHF- Cardiorenal syndrome -doing better change to PO meds increased Trop secondary to CHF/HTN and CKD normal EF -consider further work up as out patient Aortic stenosis- mild by ECHO Anemia CKD
[2018-04-05] MEDS: Furosemide 20 MG Tablet PO SCH (17:32)
--- NOTE | 2018-04-05 21:32 | MB ---
cc: Ming So MD DATE: 04/05/2018 REASON FOR CONSULTATION: Chronic kidney disease with a high BUN and creatinine, for evaluation. HISTORY OF PRESENT ILLNESS: This is a 77-year-old female with past medical history of hypertension, hyperlipidemia, diabetes mellitus, history of breast cancer, colon cancer, chronic kidney disease, following with me as outpatient. Came to the hospital complaining of worsening shortness of breath. I was called to see the patient because of elevated BUN and creatinine. The patient has stage IV chronic kidney disease. Her creatinine was 2.0 on admission and this is possibly her baseline. She has been following with me in the office and according to her, she has seen me twice. I will try to get her records from the office, but according to the patient, I told her that she does not need dialysis and her kidney function is not very good, but she does not need dialysis. The patient has just worsening shortness of breath and also had some retrosternal chest pain. She denies any nausea, vomiting. She was given 1 dose of Lasix. I saw the patient in the morning. At that time, she has mild shortness of breath and she was with nasal cannula. She denies any nausea, vomiting. No abdominal pain. No history of diarrhea. PAST MEDICAL HISTORY: Hypertension, diabetes mellitus, history of colon cancer, breast cancer, osteoarthritis, chronic kidney disease. PAST SURGICAL HISTORY: Cataract surgery, knee surgery, history of lumpectomy of the left breast. REVIEW OF SYSTEMS: The patient has worsening shortness of breath, more on exertion. Mild cough. No nausea, vomiting. No abdominal pain. No history of diarrhea. No dysuria or hematuria. SOCIAL HISTORY: There is no history of smoking or alcoholism. FAMILY HISTORY: Noncontributory. ALLERGIES: SHE IS ALLERGIC TO METRONIDAZOLE. MEDICATIONS: Currently she is on following medications: 1. Tylenol as needed. 2. Pletal 100 mg twice daily. 3. Catapres 0.1 mg 3 times daily. 4. Diltiazem 240 mg daily. 5. Cardura 4 mg twice daily. 6. Furosemide 20 mg twice daily orally. 7. Cozaar 100 mg daily. 8. Metoprolol 50 mg daily. 9. Morphine 2 mg IV every 4 hours. 10. Zofran as needed. 11. Pravachol 40 mg at bedtime. PHYSICAL EXAMINATION: GENERAL: The patient is awake, alert. She is not in acute distress. VITAL SIGNS: Her last blood pressure is 126/55. Temperature is 97.9. Oxygen saturation on room air is 93% to 95%. HEENT: Pupils are mid constricted. Nonicteric sclerae. Conjunctivae pale. NECK: Supple. JVD is not elevated. LUNGS: The patient has bilateral good air entry with basal rales and scattered wheezing. HEART: S1, S2. Regular rate and rhythm. ABDOMEN: Distended, soft, lax. There is no tenderness. Bowel sounds positive. EXTREMITIES: She has 1+ edema. LABORATORY DATA: WBC count is 7.3, hemoglobin 8.2, platelet count of 287. Neutrophils 59.3%, eosinophils 7.9%. INR is 1.0. Sodium 141, potassium 5.4, chloride 112, bicarbonate 22.6, BUN 59, creatinine 2.1, creatinine kinase 221. Troponin 0.45. Total protein is 6.0 with albumin of 3.4. TSH 1.07 and folate is greater than 20. Vitamin B12 is 950. There is no urinalysis done. IMAGING STUDIES: The patient has a venous Doppler of the leg done, which was negative for deep vein thrombosis. Chest x-ray was done, which shows cardiomegaly with moderate interstitial edema. ASSESSMENT AND PLAN: 1. Chronic kidney disease. 2. Fluid overload status. 3. Chest pain, rule out cardiac ischemia. 4. Anemia. 5. Diabetes mellitus. The patient has stage IV chronic kidney disease. She has been following with me in the office and I will get the record from the office. In the meantime, I will change her Lasix to intravenous to give her better diuresis. I will also check the iron study and gave her 1 dose of Epogen. Follow the urine output and the BUN and creatinine. Thank you for the consultation. I will follow the patient while she is in the hospital. MD JENNIFER Prince/uma/do , 08:46 PM , 08:56 PM
[2018-04-05] MEDS ORDERED: Epoetin Alfa Inj 20,000 UNIT/ML Vial SQ ONE (22:00)
[2018-04-06 06:29] LABS: Baso % (Auto) 0.6 % (0.0-2.0); Eos # (Auto) 0.4 th/mm3 (0.0-0.4); Eos % (Auto) 6.7 % (0.0-4.0); Hematocrit 22.5 % (35.0-46.0); Hemoglobin 7.3 gm/dL (11.6-15.3); Lymph # (Auto) 1.8 th/mm3 (1.0-4.8); Lymph % (Auto) 27.4 % (9.0-44.0); Mean Corpuscular HGB Conc 32.6 % (32.0-36.0); Mean Corpuscular Hemoglobin 26.6 pg (27.0-34.0); Mean Corpuscular Volume 81.4 fL (80.0-100.0); Mean Platelet Volume 7.8 fL (7.0-11.0); Mono # (Auto) 0.6 th/mm3 (0.0-0.9); Mono % (Auto) 9.3 % (0.0-8.0); Neut # (Auto) 3.6 th/mm3 (1.8-7.7); Platelet Count 259 th/mm3 (150-450); Red Blood Count 2.76 mil/mm3 (4.00-5.30); White Blood Count 6.4 th/mm3 (4.0-11.0)
[2018-04-06 06:44] LABS: Calcium 8.4 mg/dL (8.5-10.1); Carbon Dioxide 21.5 meq/L (21.0-32.0)
[2018-04-06 06:48] LABS: Phosphorus 4.9 mg/dL (2.5-4.9)
[2018-04-06] MEDS: Furosemide 20 MG Tablet PO SCH ×2 (09:54→17:20)
[2018-04-06] MEDS: Cilostazol 50 MG Tablet PO SCH ×2 (09:55→20:39)
[2018-04-06] MEDS: dilTIAZem CD 240 MG Capsule PO SCH (09:56)
[2018-04-06 10:19] LABS: % Iron Saturation 10.9 % (20-50)
--- NOTE | 2018-04-06 11:43 | P.PNIM ---
Subjective Interval history: 77-year-old female who is seen examined today for follow-up on congestive heart failure, fluid overload. Patient states that she bring a little better. She is urinating more but decreased quantity. 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 Vital signs are stable. Patient remains afebrile. Physical Exam Vital signs: Vital Signs 04/05/18 12:00 04/05/18 16:00 04/05/18 20:00 Temperature 98.4 F 97.4 F L 97.9 F Pulse Rate 106 H 84 86 Respiratory Rate 20 20 18 Blood Pressure 101/53 L 115/53 L 126/55 L Pulse Oximetry 94 L 93 L 93 L 04/05/18 20:41 04/05/18 23:58 04/06/18 04:00 Temperature 98.1 F 98 F Pulse Rate 80 78 Respiratory Rate 20 19 Blood Pressure 153/56 H 138/70 Pulse Oximetry 95 94 L 94 L 04/06/18 08:00 Temperature 96.3 F L Pulse Rate 84 Respiratory Rate 20 Blood Pressure 117/52 L Pulse Oximetry 84 L Intake & Output 04/05/18 04/06/18 04/06/18 18:59 06:59 18:59 Intake Total 1080 / 1080 400 / 400 Output Total 200 / 200 Balance 880 / 880 400 / 400 Weight 97.8 kg Intake: Oral 1080 / 1080 400 / 400 Output: Urine 200 / 200 Other: # Voids 1 3 Date of Last Bowel Movement 04/05/18 # Bowel Movements 1 1 Narrative: GENERAL: Well-developed, well-nourished, in no acute distress. alert and orientated HEENT: Head is normocephalic without any lesions or masses noted. Facial features are symmetric. Eyes: Extraocular muscles are intact. Conjunctivae were clear. NECK: Supple without any masses. Trachea midline no deviation. No JVD, CARDIAC: Regular rhythm, regular rate. S1/S2 are heard. Patient does have a rather impressive cardiac murmur with a thrilling early holosystolic murmur, this was heard in all areas but more accentuated in the aortic region. No gallops or rubs. LUNGS: Clear to auscultation bilaterally. No wheeze, rhonchi or rales. No use of accessory muscles on inspiration or expiration. ABDOMEN: Soft, nontender. Nondistended. Bowel sounds heard in all 4 quadrants. No organomegaly or masses. Negative rebound, negative guarding EXTREMITIES:1+ bilateral lower extremity edema, pulses are equal bilaterally. No cyanosis or clubbing NEUROLOGY: Mood and affect appear appropriate. Cranial nerves II through XII grossly intact. Moving all extremities, speech is clear Results Labs CBC & Chem 7: 04/06/18 05:50 04/06/18 05:50 Assessment and Plan Plan Chest pain, non-ST elevated myocardial infarction Serial cardiac enzymes were performed and indicated worsening and now plateaued at 0.45 Serial EKGs reviewed by myself which indicated sinus tachycardia with occasional supra ventricular premature complexes. First-degree AV block. No acute changes Cardiology evaluated patient and indicated medical management at this time. Would emphasize fluid management by nephrology. Continue aspirin, nitroglycerin as needed, continue beta-aislinn, ARB, pravastatin Lipid panel was done and LDL was 48 Acute congestive heart failure unknown whether it is systolic versus diastolic Echocardiogram was performed and indicated ejection fraction 60-65%. Mild aortic valve stenosis, small pericardial effusion, PA peak pressure 51 mmhg Cautious diuresis secondary to patient's acute renal failure which is getting worse Patient did have a chest x-ray which does show cardiomegaly with mild to moderate interstitial edema Patient did have elevated BNP Continue beta-aislinn, ARB Fluid restriction, daily weights Discussed with cardiology who indicated reducing to p.o. Lasix for diuresis, and once patient fluid status is improved, nephrology following the patient and clinically stable; patient can discharge home with medical management. Normocytic anemia, unknown etiology Could be anemia from chronic disease, stool was heme-negative in the emergency department Anemia studies indicating iron deficient anemia May need to transfuse to keep hemoglobin above 10.0 given the patient with cardiovascular disease Nephrology ordered Epogen to be given Chronic kidney disease with hyperkalemia Unknown what stage at this time Consulted Dr. 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 Copeland Progress Note: Quality VTE Deep Vein Thrombosis/Pulmonary Embolism Present on Admission: No
--- NOTE | 2018-04-06 16:21 | P.PNNP ---
Subjective Interval history: Patient is alert, breathing is better, eating better. Physical Exam Vital signs: Vital Signs 04/05/18 20:00 04/05/18 20:41 04/05/18 23:58 Temperature 97.9 F 98.1 F Pulse Rate 86 80 Respiratory Rate 18 20 Blood Pressure 126/55 L 153/56 H Pulse Oximetry 93 L 95 94 L 04/06/18 04:00 04/06/18 08:00 04/06/18 12:00 Temperature 98 F 96.3 F L 96.4 F L Pulse Rate 78 99 H 78 Respiratory Rate 19 20 20 Blood Pressure 138/70 117/52 L 124/52 L Pulse Oximetry 94 L 84 L 96 04/06/18 14:53 Temperature Pulse Rate Respiratory Rate Blood Pressure Pulse Oximetry 95 Intake & Output 04/05/18 04/06/18 04/06/18 18:59 06:59 18:59 Intake Total 1080 / 1080 400 / 400 180 / 180 Output Total 200 / 200 750 / 750 Balance 880 / 880 400 / 400 -570 / -570 Weight 97.8 kg Intake: Oral 1080 / 1080 400 / 400 180 / 180 Output: Urine 200 / 200 750 / 750 Other: # Voids 1 3 1 Date of Last Bowel Movement 04/05/18 # Bowel Movements 1 1 Narrative: GENERAL: Well-developed, well-nourished, in no acute distress. alert and orientated HEENT: Head is normocephalic without any lesions or masses noted. Facial features are symmetric. Eyes: Extraocular muscles are intact. Conjunctivae were clear. NECK: Supple without any masses. Trachea midline no deviation. No JVD, CARDIAC: Regular rhythm, regular rate. S1/S2 are heard. Patient does have a rather impressive cardiac murmur with a thrilling early holosystolic murmur, this was heard in all areas but more accentuated in the aortic region. No gallops or rubs. LUNGS: Clear to auscultation bilaterally. No wheeze, rhonchi or rales. No use of accessory muscles on inspiration or expiration. ABDOMEN: Soft, nontender. Nondistended. Bowel sounds heard in all 4 quadrants. No organomegaly or masses. Negative rebound, negative guarding EXTREMITIES:1+ bilateral lower extremity edema, pulses are equal bilaterally. No cyanosis or clubbing. Assessment and Plan - Assessment (1) Stage 4 chronic kidney disease Code(s): N18.4 - Chronic kidney disease, stage 4 (severe) Status: Acute (2) Acute kidney failure Code(s): N17.9 - Acute kidney failure, unspecified Status: Acute (3) Anemia Code(s): D64.9 - Anemia, unspecified Status: Acute Qualifiers: Anemia type: unspecified type Qualified Code(s): D64.9 - Anemia, unspecified (4) Non-ST elevation [place] (NSTEMI) Code(s): I21.4 - Non-ST elevation (NSTEMI) myocardial infarction Status: Acute (5) Pulmonary edema Code(s): J81.1 - Chronic pulmonary edema Status: Acute Qualifiers: Chronicity: chronic Qualified Code(s): J81.1 - Chronic pulmonary edema Plan: Patient with stage 4 chronic kidney disease. Has baseline Creatinine close to 2.0, Now has some increase in the Creatinine. Continue Lasix for now. If Creatinine is same or better can be discharged.
[2018-04-06] MEDS ORDERED: Dextrose 50% in Water 50 ML Vial IV.PUSH PRN (16:35)
[2018-04-06] MEDS: Insulin NovoLOG Aspart Correctional Sugar Inj SQ SCH ×2 (17:21→20:39)
[2018-04-07 06:39] LABS: Potassium 4.9 meq/L (3.5-5.1)
[2018-04-07 06:43] LABS: Baso % (Auto) 0.5 % (0.0-2.0); Calcium 8.4 mg/dL (8.5-10.1); Eos # (Auto) 0.5 th/mm3 (0.0-0.4); Eos % (Auto) 6.8 % (0.0-4.0); Hematocrit 22.9 % (35.0-46.0); Hemoglobin 7.5 gm/dL (11.6-15.3); Lymph # (Auto) 1.6 th/mm3 (1.0-4.8); Lymph % (Auto) 22.6 % (9.0-44.0); Mean Corpuscular HGB Conc 32.6 % (32.0-36.0); Mean Corpuscular Hemoglobin 26.6 pg (27.0-34.0); Mean Corpuscular Volume 81.6 fL (80.0-100.0); Mean Platelet Volume 7.7 fL (7.0-11.0); Mono # (Auto) 0.6 th/mm3 (0.0-0.9); Mono % (Auto) 8.5 % (0.0-8.0); Neut # (Auto) 4.4 th/mm3 (1.8-7.7); Neut % (Auto) 61.6 % (16.0-70.0); Platelet Count 256 th/mm3 (150-450); Red Blood Count 2.81 mil/mm3 (4.00-5.30); Red Cell Distribution Width 15.2 % (11.6-17.2); White Blood Count 7.2 th/mm3 (4.0-11.0)
[2018-04-07 06:44] LABS: Carbon Dioxide 22.1 meq/L (21.0-32.0)
[2018-04-07] MEDS: Insulin NovoLOG Aspart Correctional Sugar Inj SQ SCH ×5 (09:23→22:22)
[2018-04-07] MEDS: Cilostazol 50 MG Tablet PO SCH ×2 (09:24→22:23)
[2018-04-07] MEDS: dilTIAZem CD 240 MG Capsule PO SCH (09:24)
[2018-04-07] MEDS: Furosemide 20 MG Tablet PO SCH (09:24)
--- NOTE | 2018-04-07 10:59 | P.PNIM ---
Subjective Interval history: 77-year-old female who is seen examined today for follow-up on non-ST of a myocardial infarction, renal failure, congestive heart failure. Patient laying in bed resting comfortably. Denies any new complaints. Indicates her breathing is much improved. Vital signs appear to be stable. Patient remains afebrile. Physical Exam Vital signs: Vital Signs 04/06/18 12:00 04/06/18 14:53 04/06/18 16:00 Temperature 96.4 F L 97.3 F L Pulse Rate 78 77 Respiratory Rate 20 20 Blood Pressure 124/52 L 120/48 L Pulse Oximetry 96 95 94 L 04/06/18 20:00 04/06/18 20:07 04/07/18 00:00 Temperature 97.7 F 98.2 F Pulse Rate 76 51 L Respiratory Rate 18 18 Blood Pressure 126/51 L 132/51 L Pulse Oximetry 93 L 95 93 L 04/07/18 04:00 04/07/18 08:19 Temperature 97.7 F Pulse Rate 87 84 Respiratory Rate 18 Blood Pressure 122/55 L Pulse Oximetry 94 L Intake & Output 04/06/18 04/07/18 04/07/18 18:59 06:59 18:59 Intake Total 360 / 360 120 / 120 Output Total 975 / 975 Balance -615 / -615 120 / 120 Weight 97.8 kg Intake: Oral 360 / 360 120 / 120 Output: Urine 975 / 975 Other: # Voids 1 6 Date of Last Bowel Movement 04/05/18 04/06/18 # Bowel Movements 1 Narrative: GENERAL: Well-developed, well-nourished, in no acute distress. alert and orientated HEENT: Head is normocephalic without any lesions or masses noted. Facial features are symmetric. Eyes: Extraocular muscles are intact. Conjunctivae were clear. NECK: Supple without any masses. Trachea midline no deviation. No JVD, CARDIAC: Regular rhythm, regular rate. S1/S2 are heard. Patient does have a rather impressive cardiac murmur with a thrilling early holosystolic murmur, this was heard in all areas but more accentuated in the aortic region. No gallops or rubs. LUNGS: Clear to auscultation bilaterally. No wheeze, rhonchi or rales. No use of accessory muscles on inspiration or expiration. ABDOMEN: Soft, nontender. Nondistended. Bowel sounds heard in all 4 quadrants. No organomegaly or masses. Negative rebound, negative guarding EXTREMITIES:1+ bilateral lower extremity edema, pulses are equal bilaterally. No cyanosis or clubbing NEUROLOGY: Mood and affect appear appropriate. Cranial nerves II through XII grossly intact. Moving all extremities, speech is clear Results Labs CBC & Chem 7: 04/07/18 06:04 04/07/18 06:04 Assessment and Plan (1) Stage 4 chronic kidney disease: Code(s): N18.4 - Chronic kidney disease, stage 4 (severe) Status: Acute (2) Acute kidney failure: Code(s): N17.9 - Acute kidney failure, unspecified Status: Acute (3) Anemia: Code(s): D64.9 - Anemia, unspecified Status: Acute (4) Non-ST elevation [place] (NSTEMI): Code(s): I21.4 - Non-ST elevation (NSTEMI) myocardial infarction Status: Acute (5) Pulmonary edema: Code(s): J81.1 - Chronic pulmonary edema Status: Acute Plan Chest pain, non-ST elevated myocardial infarction Serial cardiac enzymes were performed and indicated worsening and now plateaued at 0.45 Serial EKGs reviewed by myself which indicated sinus tachycardia with occasional supra ventricular premature complexes. First-degree AV block. No acute changes Cardiology evaluated patient and indicated medical management at this time. Would emphasize fluid management by nephrology. Continue aspirin, nitroglycerin as needed, continue beta-aislinn, ARB, pravastatin Lipid panel was done and LDL was 48 Acute congestive heart failure unknown whether it is systolic versus diastolic Echocardiogram was performed and indicated ejection fraction 60-65%. Mild aortic valve stenosis, small pericardial effusion, PA peak pressure 51 mmhg Cautious diuresis secondary to patient's acute renal failure which is getting worse Patient did have a chest x-ray which does show cardiomegaly with mild to moderate interstitial edema Patient did have elevated BNP Continue beta-aislinn, ARB Patient is on Lasix 20 mg p.o. twice daily, will change to daily in light of patient's worsening renal function Fluid restriction, daily weights Discussed with cardiology that once patient fluid status is improved, nephrology following the patient and clinically stable; patient can discharge home with medical management. Normocytic anemia, unknown etiology Could be anemia from chronic disease, stool was heme-negative in the emergency department Anemia studies indicating iron deficient anemia May need to transfuse to keep hemoglobin above 10.0 given the patient with cardiovascular disease Nephrology ordered Epogen to be given Chronic kidney disease stage IV, worsening Consulted Dr. 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 However they continue to worsen. Appreciate further recommendations Diabetes Diabetic diet Accu-Cheks with sliding scale insulin DVT prevention Sequential compression devices Progress Note: Quality VTE Deep Vein Thrombosis/Pulmonary Embolism Present on Admission: No _ (1) Acute kidney failure Qualifiers: Acute renal failure type: (2) Anemia Qualifiers: Anemia type: unspecified type Bone marrow failure anemia type: Chronic kidney disease stage: Folate deficiency anemia type: Hemolytic anemia type: Iron deficiency anemia type: Other causes of anemia: Vitamin B12 deficiency anemia type: Qualified Code(s): D64.9 - Anemia, unspecified (3) Pulmonary edema Qualifiers: Chronicity: chronic Qualified Code(s): J81.1 - Chronic pulmonary edema
--- NOTE | 2018-04-07 22:18 | P.PNNP ---
Subjective Interval history: Patient seen in the afternoon , alert, breathing is better, on room air. Physical Exam Vital signs: Vital Signs 04/07/18 00:00 04/07/18 04:00 04/07/18 08:00 Temperature 98.2 F 97.7 F 97.3 F L Pulse Rate 51 L 87 86 Respiratory Rate 18 18 20 Blood Pressure 132/51 L 122/55 L 139/77 Pulse Oximetry 93 L 94 L 95 04/07/18 08:19 04/07/18 12:00 04/07/18 16:00 Temperature 98.1 F 96.4 F L Pulse Rate 84 81 86 Respiratory Rate 20 20 Blood Pressure 127/56 L 142/56 H Pulse Oximetry 94 L 96 04/07/18 17:05 04/07/18 19:45 04/07/18 20:00 Temperature 97.8 F Pulse Rate 84 81 Respiratory Rate 19 Blood Pressure 139/60 Pulse Oximetry 93 L 95 Intake & Output 04/07/18 04/07/18 04/08/18 06:59 18:59 06:59 Intake Total 120 / 120 300 / 300 Balance 120 / 120 300 / 300 Weight 97.8 kg Intake: Oral 120 / 120 300 / 300 Other: # Voids 6 2 Date of Last Bowel Movement 04/06/18 # Bowel Movements 1 Narrative: GENERAL: Well-developed, well-nourished, in no acute distress. alert and orientated HEENT: Head is normocephalic without any lesions or masses noted. Facial features are symmetric. Eyes: Extraocular muscles are intact. Conjunctivae were clear. NECK: Supple without any masses. Trachea midline no deviation. No JVD, CARDIAC: Regular rhythm, regular rate. S1/S2 are heard. Patient does have a rather impressive cardiac murmur with a thrilling early holosystolic murmur, this was heard in all areas but more accentuated in the aortic region. No gallops or rubs. LUNGS: Clear to auscultation bilaterally. No wheeze, rhonchi or rales. No use of accessory muscles on inspiration or expiration. ABDOMEN: Soft, nontender. Nondistended. Bowel sounds heard in all 4 quadrants. No organomegaly or masses. Negative rebound, negative guarding EXTREMITIES:1+ bilateral lower extremity edema, pulses are equal bilaterally. No cyanosis or clubbing. Assessment and Plan - Assessment (1) Stage 4 chronic kidney disease Code(s): N18.4 - Chronic kidney disease, stage 4 (severe) Status: Acute (2) Acute kidney failure Code(s): N17.9 - Acute kidney failure, unspecified Status: Acute (3) Anemia Code(s): D64.9 - Anemia, unspecified Status: Acute Qualifiers: Anemia type: unspecified type Qualified Code(s): D64.9 - Anemia, unspecified (4) Non-ST elevation [place] (NSTEMI) Code(s): I21.4 - Non-ST elevation (NSTEMI) myocardial infarction Status: Acute (5) Pulmonary edema Code(s): J81.1 - Chronic pulmonary edema Status: Acute Qualifiers: Chronicity: chronic Qualified Code(s): J81.1 - Chronic pulmonary edema Plan: Patient with stage 4 chronic kidney disease. Has baseline Creatinine close to 2.0, Creatinine continue to increase, and now it is 2.6. Lasix decreased to once a day. Follow the BMP in AM. If Creatinine is better, can be discharge with out patient follow up.
[2018-04-08 08:10] LABS: Baso % (Auto) 0.5 % (0.0-2.0); Eos # (Auto) 0.6 th/mm3 (0.0-0.4); Eos % (Auto) 7.9 % (0.0-4.0); Hematocrit 24.5 % (35.0-46.0); Hemoglobin 7.7 gm/dL (11.6-15.3); Lymph # (Auto) 1.6 th/mm3 (1.0-4.8); Lymph % (Auto) 22.3 % (9.0-44.0); Mean Corpuscular HGB Conc 31.6 % (32.0-36.0); Mean Corpuscular Hemoglobin 26.4 pg (27.0-34.0); Mean Corpuscular Volume 83.5 fL (80.0-100.0); Mean Platelet Volume 8.2 fL (7.0-11.0); Mono # (Auto) 0.7 th/mm3 (0.0-0.9); Mono % (Auto) 10.5 % (0.0-8.0); Neut # (Auto) 4.2 th/mm3 (1.8-7.7); Neut % (Auto) 58.8 % (16.0-70.0); Platelet Count 249 th/mm3 (150-450); Red Blood Count 2.93 mil/mm3 (4.00-5.30); Red Cell Distribution Width 15.6 % (11.6-17.2); White Blood Count 7.1 th/mm3 (4.0-11.0)
[2018-04-08 08:19] LABS: Potassium 4.8 meq/L (3.5-5.1)
[2018-04-08 08:25] LABS: Calcium 8.6 mg/dL (8.5-10.1)
[2018-04-08 08:26] LABS: Carbon Dioxide 21.5 meq/L (21.0-32.0)
[2018-04-08] MEDS: Furosemide 20 MG Tablet PO SCH (08:31)
[2018-04-08] MEDS: Insulin NovoLOG Aspart Correctional Sugar Inj SQ SCH (08:31)
[2018-04-08] MEDS: dilTIAZem CD 240 MG Capsule PO SCH (08:31)
[2018-04-08 09:22] VITALS: PULSE 95
--- NOTE | 2018-04-08 09:45 | P.DS ---
DS: Providers Date of admission: 04/05/18 08:43 Primary care physician: Marjorie Frazier MD Consults: 04/04/18 16:49 Consult to Cardiology Routine Consulting Provider: Rudolph Dominguez Does the patient have a Manager [employer] who follows them?: Yes Preferred Grocery Manager:: Rudolph Dominguez Reason for Consultation: Patient known to you with chest pain, congestive heart failure, elevated troponin Notified:: Service Spoke with:: JADEN Date Notified:: 04/04/18 Time Notified:: 17:00 Comments:: CHANGED FROM DONA TO CHERYL ORTIZ IN CALL CENTER Ordering Provider: NATALIIA Consult to Nephrology Routine Consulting Provider: Ming So Does the patient have a Accounting Systems Analyst who follows them?: Yes Preferred Nephrology Sales Advisor:: Nathen So Reason for Consultation: Patient known to you. Appreciate recommendations for patient with chronic kidney disease, hyperkalemia, fluid overload with congestive heart failure and elevated troponin Notified:: Service Spoke with:: JADEN Date Notified:: 04/04/18 Time Notified:: 17:08 Ordering Provider: NATALIIA 04/05/18 11:27 HUB Only Consult Order Routine Consulting Provider: Yesenia Patterson Anticipated date of discharge: 04/08/18 Brief History from admission: 77-year-old female with known history of hypertension, hyperlipidemia, diabetes, history of breast cancer, history of colon cancer who presented to the hospital today at the request of her underwriting support specialist and primary medical doctor for evaluation of shortness of breath, chest pain, abnormal EKG. Patient indicates that over the last 3 months she has been experiencing progressive shortness of breath, chest pain. She states that it started out being approximately 1-2 times a week where she would walk approximately 40 feet she would start developing difficulty in breathing, shortness of breath with development of chest pain in the right upper chest. She states that whenever she sits down the pain will go away in approximately 5 minutes. He denies any radiation of pain to the neck, back, shoulder, arm. Denies any nausea, vomiting, diaphoresis, lightheadedness or dizziness. Patient states that whenever she gets this discomfort she cannot lay down because it makes her breathing worse. The pain has progressively got worse over the last 3 months where she is having a couple times a day. She thought that she would wait until her follow-up appointment with her primary doctor Dr. Frazier which was today. The patient had evaluation done at her prior medical doctor's office and apparently had an abnormal EKG so patient's prior medical doctor called her underwriting support specialist Dr. Dominguez who notify them that the patient should go to the emergency department for evaluation. Upon evaluation emergency department patient was found to have multiple abnormalities with uncontrolled hypertension, EKG with sinus tachycardia and first-degree AV block which patient does not have any previous EKGs here for us to review. Patient had elevated troponin. Elevated renal functions. She indicates that she has been evaluated by a chick room supervisor in the past because of her abnormal kidney functions. She was told that she does not need dialysis at this time. Patient found to have normocytic anemia with heme negative stool. Patient denied any hematemesis, hematochezia, melena. Patient did have elevated d-dimer, unable to pursue pulmonary angiogram due to renal functions. Lower extremity ultrasound was performed which did not indicate any DVTs. Will defer further evaluation with possible VQ scan to cardiology. Will need to see if patient will require myocardial perfusion study for further evaluation. Patient did have elevated cardiac enzymes which could be secondary to chronic kidney disease or non-ST elevated myocardial infarction or congestive heart failure. Patient will obviously be admitted to hospital for further evaluation and management. Cardiology has been consulted for further recommendations DS: Diagnosis Discharge Diagnosis (1) Stage 4 chronic kidney disease: Status: Acute (2) Acute kidney failure: Status: Acute (3) Anemia: Status: Acute (4) Non-ST elevation [place] (NSTEMI): Status: Acute (5) Pulmonary edema: Status: Acute DS: Summary 77-year-old female with known history of hypertension, hyperlipidemia, diabetes , history of breast cancer, history colon cancer presented to [facility] of her underwriting support specialist upon medical doctor for evaluation of shortness of breath, chest pain, abnormal EKG. Upon evaluation emergency department patient was found to have a non-ST elevated myocardial infarction, acute on chronic diastolic congestive heart failure in the presence of chronic kidney disease stage IV. Patient was admitted to hospital with cardioprotection with aspirin, nitroglycerin, beta-aislinn, ARB, pravastatin. Manager [employer] was consulted who emphasized medical and treatment for her congestive heart failure. It was concerning because the patient had rather impressive aortic murmur echocardiogram was performed which did show ejection fraction 60-65% with mild aortic valve stenosis. Patient was treated for her acute congestive heart failure with increased diuresis of Lasix 40 mg twice daily, fluid restriction Daily weights. Patient was already on beta-aislinn, ARB. Patient fluid status did improve, however her renal functions worsen. Patient's chick room supervisor was consulted for further recommendations. Patient did diurese well but with the consequences of her renal function is worsening. Diuresis was adjusted until her renal functions plateaued and started to improve. Patient also had normocytic anemia. Anemia studies indicating some mild iron deficient anemia. Accounting Systems Analyst did give the patient Epogen to help with her anemia status. Patient's hemoglobin remained stable during her stay in the hospital. Patient symptoms did improve. She is able to walk further without getting short of breath. Patient clinically stable at this time. Cardiology, nephrology has indicated patient is okay to discharge with outpatient follow-up. This was discussed with the patient she is in agreement. She is just concerned about her medical condition that she does not want to have to come back to the hospital again anytime soon. I discussed with her extensively that she has multiple medical problems that is going to take some fine tuning by her specialist and prior medical doctor in order to get her clinically stable. Patient will need to follow strict outpatient guidelines with fluid restrictions , daily weights. She does understand. We will plan discharge accordingly. Chest pain, non-ST elevated myocardial infarction Serial cardiac enzymes were performed and indicated worsening with plateauing at 0.45 Serial EKGs reviewed by myself which indicated sinus tachycardia with occasional supra ventricular premature complexes. First-degree AV block. No acute changes Cardiology evaluated patient and indicated medical management at this time. Emphasized fluid management by nephrology. Continue aspirin, nitroglycerin as needed, continue beta-aislinn, ARB, pravastatin Lipid panel was done and LDL was 48 Acute congestive heart failure unknown whether it is systolic versus diastolic Echocardiogram was performed and indicated ejection fraction 60-65%. Mild aortic valve stenosis, small pericardial effusion, PA peak pressure 51 mmhg Cautious diuresis secondary to patient's acute renal failure which is getting worse Patient did have a chest x-ray which does show cardiomegaly with mild to moderate interstitial edema Patient did have elevated BNP Continue beta-aislinn, ARB Patient's fluid status was maintained and stabilized on Lasix 20 mg daily Fluid restriction, daily weights Discussed with cardiology that once patient fluid status is improved, nephrology following the patient and clinically stable; patient can discharge home with medical management. Normocytic anemia, unknown etiology Could be anemia from chronic disease, stool was heme-negative in the emergency department Anemia studies indicating iron deficient anemia May need to transfuse to keep hemoglobin above 10.0 given the patient with cardiovascular disease Nephrology ordered Epogen to be given Chronic kidney disease stage IV, worsened during hospitalization and diuresis Consulted Dr. So, patient's chick room supervisor was consulted for further evaluation Continue monitor renal function Avoid nephrotoxins After reduction of Lasix to 20 mg daily renal functions have plateaued and started to improve. This was discussed with patient's chick room supervisor who indicated patient is stable to go home with outpatient follow-up Diabetes Diabetic diet Accu-Cheks with sliding scale insulin Time Spent with Patient Total time spent providing and/or coordinating discharge services: Greater than 30 minutes Status at Discharge Functional status at discharge: independent ambulation Overall status at discharge: patient is back to baseline Quality: VTE Deep Vein Thrombosis/Pulmonary Embolism Present on Admission: No Exam Narrative Exam Narrative: GENERAL: Well-developed, well-nourished, in no acute distress. alert and orientated HEENT: Head is normocephalic without any lesions or masses noted. Facial features are symmetric. Eyes: Extraocular muscles are intact. Conjunctivae were clear. NECK: Supple without any masses. Trachea midline no deviation. No JVD, CARDIAC: Regular rhythm, regular rate. S1/S2 are heard. Patient does have a rather impressive cardiac murmur with a thrilling early holosystolic murmur, this was heard in all areas but more accentuated in the aortic region. No gallops or rubs. LUNGS: Clear to auscultation bilaterally. No wheeze, rhonchi or rales. No use of accessory muscles on inspiration or expiration. ABDOMEN: Soft, nontender. Nondistended. Bowel sounds heard in all 4 quadrants. No organomegaly or masses. Negative rebound, negative guarding EXTREMITIES:1+ bilateral lower extremity edema, pulses are equal bilaterally. No cyanosis or clubbing NEUROLOGY: Mood and affect appear appropriate. Cranial nerves II through XII grossly intact. Moving all extremities, speech is clear Results Labs on day of discharge: Labs from last 24 hours 04/08/18 04/08/18 04/08/18 07:45 07:20 07:20 CBC w Diff Auto diff final WBC 7.1 RBC 2.93 L Hgb 7.7 L Hct 24.5 L MCV 83.5 MCH 26.4 L MCHC 31.6 L RDW 15.6 Plt Count 249 MPV 8.2 Neut % (Auto) 58.8 Lymph % (Auto) 22.3 [place] % (Auto) 10.5 H Eos % (Auto) 7.9 H Baso % (Auto) 0.5 Neut # (Auto) 4.2 Lymph # (Auto) 1.6 [place] # (Auto) 0.7 Eos # (Auto) 0.6 H Baso # (Auto) 0.0 WBC Differential . Differential Comment . Sodium 140 Potassium 4.8 Chloride 110 H Carbon Dioxide 21.5 Anion Gap 9 BUN 72 H Creatinine 2.50 H Estimated GFR 19 L POC Glucose 156 Random Glucose 145 H Calcium 8.6 04/08/18 04/07/18 04/07/18 01:02 16:53 12:04 CBC w Diff WBC RBC Hgb Hct MCV MCH MCHC RDW Plt Count MPV Neut % (Auto) Lymph % (Auto) [place] % (Auto) Eos % (Auto) Baso % (Auto) Neut # (Auto) Lymph # (Auto) [place] # (Auto) Eos # (Auto) Baso # (Auto) WBC Differential Differential Comment Sodium Potassium Chloride Carbon Dioxide Anion Gap BUN Creatinine Estimated GFR POC Glucose 154 159 215 Random Glucose Calcium Impressions ITS Impressions Chest X-Ray 04/04/18 11:39 CONCLUSION: Cardiomegaly with mild to moderate interstitial edema Minimal parenchymal changes left base, new from comparison study. Venous Doppler Study 04/04/18 13:43 CONCLUSION: 1. Negative examination with no evidence of deep venous thrombosis. Additional Comments Discussed with patient, nursing staff, Dr. So, Dr. Copleand Discharge Plan Discharge Disposition Patient Disposition: Discharge Home Discharge Condition Condition: Stable Discharge Order Discharge Orders: Discharge Order (Routine); Ordered 04/08/18 Ordered By: Carter Dyson Discharge Details Anticipated Discharge Date: 04/08/18 Physicians Team ED Provider: Keyon Rubio Primary Care Provider: Marjorie Frazier Attending Provider: Dario Copeland Other Providers: Ming So ; Rudolph Dominguez ; [employer] Rxs /Orders / Referrals /Forms Prescriptions: New furosemide 20 mg Tablet 20 mg PO DAILY Qty: 30 RF: 0 Continue cilostazol 100 mg Tablet 100 mg PO BID RF: 0 clonidine HCl 0.1 mg Tablet 0.1 mg PO TID RF: 0 diltiazem HCl [DILT-XR] 240 mg Capsule,Ext.Rel 24h Degradable 240 mg PO DAILY RF: 0 pravastatin 40 mg Tablet 40 mg PO DAILY RF: 0 metoprolol succinate 50 mg Tablet Extended Release 24 Hr 50 mg PO DAILY RF: 0 alendronate 70 mg Tablet 70 mg PO QWEEK RF: 0 calcium carbonate-vitamin D3 [Calcium 600 + D(3)] 600 mg(1,500mg) -200 unit Tablet 1 tab PO DAILY RF: 0 aspirin [Aspir-81] 81 mg Tablet,Delayed Release (Dr/Ec) 81 mg PO DAILY RF: 0 glipizide 2.5 mg Tablet Extended Release 24hr 2.5 mg PO DAILY RF: 0 doxazosin 4 mg Tablet 4 mg PO BID RF: 0 losartan 100 mg Tablet 100 mg PO DAILY RF: 0 gfdhbloc-ckp-OS-lycopen-lutein [Centrum Silver] 0.4-300-250 mg-mcg-mcg Tablet 1 tab PO DAILY RF: 0 Discontinued hydrochlorothiazide 12.5 mg PO DAILY RF: 0 Ambulatory Orders / Order Sets / DME: Basic Metabolic Panel (Routine) Timeframe: 1 Week Location: [facility] Ordered By: Carter Dyson Referrals: Ming So MD [Physician] - See Instructions (Follow-up with chick room supervisor in 2 weeks) Marjorie Frazier MD [Primary Care Provider] - See Instructions (Follow-up with primary care doctor in 1 week) Discharge Interventions Interventions: Discharge Planning - Case Management Last Done: 04/05/18 11:57 Status ED Status: Left Department
[2018-04-08] MEDS: Cilostazol 50 MG Tablet PO SCH (10:21)
[2018-04-08 10:47] VITALS: BP 137/59; RESP 20; TEMP 96.4; O2SAT 95
== END 2018-04-08 11:36 | disposition home or self-care (01) | DRG 280 ==
LOC: PHED 11:08 → INTOOBSV 14:34 → PHEDA 14:34 → PH3 15:22
PROVIDERS: ADMIT Hospitalist; ATTEND Hospitalist
DX: E66.01 Morbid (severe) obesity due to excess calories; I35.0 Nonrheumatic aortic (valve) stenosis; N18.4 Chronic kidney disease, stage 4 (severe); I44.0 Atrioventricular block, first degree; E87.5 Hyperkalemia; I50.33 Acute on chronic diastolic (congestive) heart failure; I25.118 Atherosclerotic heart disease of native coronary artery with other forms of angina pectoris; D50.9 Iron deficiency anemia, unspecified; I21.4 Non-ST elevation (NSTEMI) myocardial infarction; Z68.42 Body mass index [BMI] 45.0-49.9, adult; Z83.3 Family history of diabetes mellitus; Z77.22 Contact with and (suspected) exposure to environmental tobacco smoke (acute) (chronic); D63.1 Anemia in chronic kidney disease; Z92.3 Personal history of irradiation; N17.9 Acute kidney failure, unspecified; R00.0 Tachycardia, unspecified; Z80.9 Family history of malignant neoplasm, unspecified; Z85.038 Personal history of other malignant neoplasm of large intestine; Z85.3 Personal history of malignant neoplasm of breast; I13.0 Hypertensive heart and chronic kidney disease with heart failure and stage 1 through stage 4 chronic kidney disease, or unspecified chronic kidney disease; E78.5 Hyperlipidemia, unspecified; E11.22 Type 2 diabetes mellitus with diabetic chronic kidney disease
CPT/HCPCS: 71010; 71045; 80048; 80053; 80061; 82550; 82552; 82607; 82728; 82746; 82948; 82962; 83010; 83520; 83540; 83550; 83615; 83880; 84100; 84443; 84484; 85025; 85044; 85379; 85610; 85651; 85652; 85730; 86850; 86900; 86901; 90774; 93005; 93306; 93970; 96374; 99291; C8952; G0378; J0886; J1815; J1940; Q4055; Q4081